=== PATIENT | female | born 1940 | race Caucasian/White ===

== ENCOUNTER 2016-07-01 17:17 | Observation (INO) | payer OTHER ==
[~2016-07-01] VITALS: Ht 154.9 cm; Wt 63.0 kg
[~2016-07-01 17:17] MED LIST: ALL DAY ALLERGY10 M3 PO; ANTI-DIARRHEA2 MG PO; ARICEPT10 MG PO; ARTIFICIAL TEAR15 M1 BOTH EYES; ASPIR 8181 M1 PO; ASPIRIN325 MG PO; ASPIRIN81 M1 PO; ASPIRIN81 M2 PO; ATHENOL325 MG PO; AUGMENTIN500 MG PO; Aricept PO; Aspirin E.C. PO; BENGAY TP; BENGAY113 GM TP; BYETTA PEN250 MCG/M1 SC; BYETTA10 MCG/0.0 SC; CALCIUM 500 +1 EACH PO; CHILD ASPIRIN81 M1 PO; CIPRO250 MG PO; COLACE100 MG PO; COUMADIN,JANTO7.5 MG PO; COUMADIN,JANTOVE5 MG PO; CRESTOR40 MG PO; CYMBALTA30 MG PO; CYMBALTA60 MG PO; Colace PO; Cymbalta PO; DIABETIC SILTU118 M1 PO; DONEPEZIL HCL10 MG PO; DUONEB 2.5-0.5 M3 ML AEROSOL; ENDOCET 5-3251 EACH PO; FERROUS SULFAT325 MG PO; FLEXERIL10 MG PO; GABAPENTIN300 MG PO; HEPARIN SO5000 UNITS SC; HUMALOG MI100 UNIT/5 SQ; HUMALOG MI100 UNIT/6 SC; HUMALOG MI100 UNIT/6 SQ; HUMALOG MI100 UNITS/ SC; HUMALOG100 UNIT/1 SC; HYDROCODON-ACE1 EACH PO; HYDROCODONE-AP1 EAC8 PO; IMODIUM A-D2 M1 PO; Imodium PO; KEFLEX500 MG PO; LANTUS 10100 UNITS/ SC; LEVAQUIN500 MG PO; LEVEMIR100 UNIT/2 SC; LEVO-T88 MCG PO; LEVOTHROID,S0.075 MG PO; LEVOTHYROXINE88 MCG PO; LIDODERM 5% P1 PATCH TD; LIPITOR80 MG PO; LISINOPRIL20 MG PO; LOPRESSOR25 MG PO; LORAZEPAM0.5 MG PO; Levothroid,Synthroid PO; Lopressor PO; METOPROLOL TART25 MG PO; METOPROLOL TART50 MG PO; MULTI VITAMIN1 EACH PO; NEURONTIN300 MG PO; NITROGLYCERIN0.4 MG SL; NITROSTAT0.4 MG PO; NITROSTAT0.4 MG SL; NOVOLOG 10100 UNITS/ SC; NOVOLOG MI100 UNIT/M SC; Neurontin PO; Nitrostat,NitroQuick SL; OSCAL, OYSTER500 MG PO; OXYCODONE HCL5 MG PO; OYSTERCAL-D 501 EACH PO; Oscal 500 w/Vitamin PO; PAIN & FEVER325 MG PO; PERCOCET 5/31 TABLET PO; PREDNISONE20 MG PO; PROTEIN POWDER454 G1 PO; PROTONIX40 MG PO; PROVENTIL,2.5 MG/3 M IH; Questran PO; RANITIDINE HCL150 MG PO; RHINOCORT AQUA8.6 G1 NS; ROXICODONE5 MG PO; SENNA8.6 MG PO; SPIRIVA1 INHALATI IH; TYLENOL REGULA325 MG PO; VICODIN,LORT1 TABLET PO; Vicodin,Norco 5/325 PO; XARELTO15 MG PO; ZANTAC300 MG PO; ZESTRIL,PRINIVI20 MG PO; ZYRTEC10 M2 PO; ZYRTEC10 M3 PO; Zestril,Prinivil PO
[2016-07-01] MEDS ORDERED: GABAPENTIN800 MG PO (17:36)
[2016-07-01] MEDS ORDERED: GABAPENTIN400 MG PO (17:36)
[2016-07-01] MEDS ORDERED: HYDROCODON-ACE1 EAC7 PO ×2 (17:38→18:56)
[2016-07-01] MEDS ORDERED: LEVEMIR100 UNIT/2 SC ×2 (17:39→17:41)
[2016-07-01 17:40] LABS: BASOPHIL COUNT 0.1 K/uL (0-0.1); EOSINOPHIL (%) 5.7 % (0-5); EOSINOPHIL COUNT 0.5 K/uL (0-0.3); HEMATOCRIT 32.6 % (36.0-46.0); IMMATURE GRANULOCYTE (%) 0.2 % (0.0-0.7); INSTRUMENT ABS NEUTROPHIL CT 5.6 K/uL; LYMPHOCYTE COUNT 2.4 K/uL (1.0-2.8); MCH 29.9 PG (29.0-34.0); MCV 96.4 FL (83-99); MEAN PLAT.VOLUME 9.2 uM^3 (9.5-12.4); MONOCYTE (%) 8.6 % (3-12); MONOCYTE COUNT 0.8 K/uL (0-0.8); NEUTROPHIL (%) 59.3 % (45-76); NEUTROPHIL COUNT 5.6 K/uL (1.8-6.4); PLATELET COUNT 244 K/uL (156-360); RBC DIS.WIDTH-CV 15.7 % (11.8-14.6); RBC DIS.WIDTH-SD 55.1 % (39-53); RED BLOOD COUNT 3.38 M/uL (3.80-5.20); WHITE BLOOD COUNT 9.5 K/uL (4.1-10.2)
[2016-07-01] MEDS ORDERED: LORATADINE10 M2 PO (17:42)
[2016-07-01] MEDS ORDERED: MELOXICAM7.5 MG PO (17:43)
[2016-07-01] MEDS ORDERED: METOPROLOL TART50 MG PO (17:44)
[2016-07-01 17:48] LABS: CHLORIDE 106 mEq/L (99-109); SODIUM 138 mEq/L (136-147)
[2016-07-01 17:49] LABS: INTER. NORMALIZED RATIO 1.1; PROTHROMBIN TIME 11.1 (9.2-11.2); PTT 25.4 (25-32)
[2016-07-01 17:50] LABS: GLUCOSE 83 mg/dL (70-99)
[2016-07-01 17:51] LABS: ANION GAP 7 MEQ/L (2-14)
[2016-07-01 17:54] LABS: GFR ESTIMATE (CALCULATED) 39 mL/min/
[2016-07-01 17:55] LABS: UREA NITROGEN (BUN) 35 mg/dL (9-23)
[2016-07-01 17:57] LABS: POTASSIUM 6.1 mEq/L (3.7-5.4)
[2016-07-01] MEDS ORDERED: SYNTHROID88 MCG PO (18:47)
[2016-07-01] MEDS ORDERED: BACTRIM,SEPT1 TABLET PO (18:49)
[2016-07-01] MEDS ORDERED: LITE COAT ASPI325 M1 PO (18:49)
[2016-07-01] MEDS ORDERED: COLACE100 MG PO (18:50)
[2016-07-01] MEDS ORDERED: BYETTA PEN250 MCG/M1 SC (18:51)
[2016-07-01] MEDS ORDERED: HUMALOG100 UNIT/2 SC ×4 (18:52→18:54)
[2016-07-01 18:54] LABS: TOTAL CHOLESTEROL 111 mg/dL (Desirable<200); TRIGLYCERIDES 290 MG/DL (Normal: <150)
[2016-07-01 18:55] LABS: HDL CHOLESTEROL 25 MG/DL (Desirable>=50); LDL CHOLESTEROL 28 mg/dL (Desirable<100); NON-HDL CHOLESTEROL 86 mg/dL (Desirable<160)
[2016-07-01 22:58] LABS: TROP-I INTERPRETATION NEGATIVE; TROPONIN-I < 0.01 ng/mL (0.0-0.30)
[2016-07-01 23:21] VITALS: BP 133/80
[2016-07-02 04:00] VITALS: BP 124/76
[2016-07-02 06:48] LABS: HEMATOCRIT 33.1 % (36.0-46.0); MCHC 30.8 G/DL (30.0-36.0); MCV 97.4 FL (83-99); MEAN PLAT.VOLUME 9.6 uM^3 (9.5-12.4); PLATELET COUNT 224 K/uL (156-360); RBC DIS.WIDTH-CV 15.9 % (11.8-14.6); RBC DIS.WIDTH-SD 56.2 % (39-53); WHITE BLOOD COUNT 10.5 K/uL (4.1-10.2)
[2016-07-02 07:13] LABS: TROP-I INTERPRETATION NEGATIVE; TROPONIN-I < 0.01 ng/mL (0.0-0.30)
[2016-07-02 07:30] VITALS: BP 138/60
[2016-07-02 08:13] LABS: ANION GAP 3 MEQ/L (2-14); CHLORIDE 104 MEQ/L (99-109); GFR ESTIMATE (CALCULATED) 42 mL/min/; GLUCOSE 160 mg/dL (70-99); SAMPLE HEMOLYSIS CHECK 0; SAMPLE ICTERIC CHECK 0; SAMPLE LIPEMIA CHECK 0; SODIUM 139 MEQ/L (136-147); UREA NITROGEN (BUN) 29 mg/dL (9-23)
[2016-07-02 08:15] LABS: POTASSIUM 6.1 MEQ/L (3.7-5.4)
[2016-07-02 12:32] VITALS: BP 115/56
[2016-07-02 15:19] LABS: TROP-I INTERPRETATION NEGATIVE; TROPONIN-I < 0.01 ng/mL (0.0-0.30)
[2016-07-02 17:43] LABS: ANION GAP 5 MEQ/L (2-14); CHLORIDE 99 MEQ/L (99-109); GFR ESTIMATE (CALCULATED) 51 mL/min/; GLUCOSE 145 mg/dL (70-99); SAMPLE HEMOLYSIS CHECK 0; SAMPLE ICTERIC CHECK 0; SAMPLE LIPEMIA CHECK 0; SODIUM 133 MEQ/L (136-147); UREA NITROGEN (BUN) 25 mg/dL (9-23)
[2016-07-02 17:45] LABS: POTASSIUM 4.7 MEQ/L (3.7-5.4)
[2016-07-02] MEDS ORDERED: LEVEMIR100 UNIT/2 SC (18:35)
[2016-07-02 22:00] VITALS: BP 139/63
[2016-07-03 07:32] LABS: Estimated Average Glucose 171 mg/dL (70-123); HEMOGLOBIN A1c (GLYCOHEMOGLOB) 7.6 % HGB (Below 5.7)
== END 2016-07-02 22:35 ==
LOC: EME 17:17 → EDOF 20:00 → 5WEST 20:00
PROVIDERS: Emergency Medicine; Family Medicine
DX: G45.9 Transient cerebral ischemic attack, unspecified (principal); K62.5 Hemorrhage of anus and rectum; R41.82 Altered mental status, unspecified; E11.9 Type 2 diabetes mellitus without complications; I25.10 Atherosclerotic heart disease of native coronary artery without angina pectoris; Z95.5 Presence of coronary angioplasty implant and graft; G89.4 Chronic pain syndrome; M19.90 Unspecified osteoarthritis, unspecified site; Z96.649 Presence of unspecified artificial hip joint; K21.9 Gastro-esophageal reflux disease without esophagitis; E03.9 Hypothyroidism, unspecified; I10 Essential (primary) hypertension; E78.5 Hyperlipidemia, unspecified; F41.9 Anxiety disorder, unspecified; F32.9 Major depressive disorder, single episode, unspecified; G62.9 Polyneuropathy, unspecified; J44.9 Chronic obstructive pulmonary disease, unspecified; D64.9 Anemia, unspecified; G30.9 Alzheimer's disease, unspecified; F02.80 Dementia in other diseases classified elsewhere, unspecified severity, without behavioral disturbance, psychotic disturbance, mood disturbance, and anxiety; Z79.4 Long term (current) use of insulin; Z87.891 Personal history of nicotine dependence
CPT/HCPCS: 70450; 70551; 80048; 80048 91; 80061; 83036; 84484; 85025; 85027; 85610; 85730; 93005; 93880; 99281; 99285; G0378

== ENCOUNTER 2016-10-12 15:26 | Inpatient (IN) | payer OTHER ==
[~2016-10-12] VITALS: Ht 154.9 cm; Wt 67.2 kg
[~2016-10-12 15:26] MED LIST changes: +BACTRIM,SEPT1 TABLET PO; +GABAPENTIN400 MG PO; +GABAPENTIN800 MG PO; +HUMALOG100 UNIT/2 SC; +HYDROCODON-ACE1 EAC7 PO; +LITE COAT ASPI325 M1 PO; +LORATADINE10 M2 PO; +MELOXICAM7.5 MG PO; +SYNTHROID88 MCG PO
[2016-10-12 17:00] LABS: CHLORIDE 102 mEq/L (99-109); SODIUM 135 mEq/L (136-147)
[2016-10-12 17:01] LABS: GLUCOSE 199 mg/dL (70-99)
[2016-10-12 17:03] LABS: ANION GAP 10 MEQ/L (2-14)
[2016-10-12 17:05] LABS: GFR ESTIMATE (CALCULATED) 36 mL/min/
[2016-10-12 17:06] LABS: UREA NITROGEN (BUN) 29 mg/dL (9-23)
[2016-10-12 17:32] LABS: EOSINOPHIL (%) 2.6 % (0-5); EOSINOPHIL COUNT 0.4 K/uL (0-0.3); IMMATURE GRANULOCYTE (%) 0.7 % (0.0-0.7); IMMATURE GRANULOCYTE COUNT 0.1 K/uL; INSTRUMENT ABS NEUTROPHIL CT 9.2 K/uL; LYMPHOCYTE COUNT 2.7 K/uL (1.0-2.8); MCH 33.8 PG (29.0-34.0); MCV 112.5 FL (83-99); MEAN PLAT.VOLUME 9.5 uM^3 (9.5-12.4); MONOCYTE (%) 8.5 % (3-12); MONOCYTE COUNT 1.1 K/uL (0-0.8); NEUTROPHIL (%) 68.1 % (45-76); NEUTROPHIL COUNT 9.2 K/uL (1.8-6.4); NRBC (%) 0.7 /100 WBC (0-0); PLATELET COUNT 247 K/uL (156-360); RBC DIS.WIDTH-CV 22.1 % (11.8-14.6); RBC DIS.WIDTH-SD 84.1 % (39-53); WHITE BLOOD COUNT 13.5 K/uL (4.1-10.2)
[2016-10-12 17:35] LABS: INTER. NORMALIZED RATIO 1.1; PROTHROMBIN TIME 10.8 (9.2-11.2); PTT 26.8 (25-32)
[2016-10-12 18:01] LABS: HDL CHOLESTEROL 31 MG/DL (Desirable>=50); LDL CHOLESTEROL 23 mg/dL (Desirable<100); NON-HDL CHOLESTEROL 69 mg/dL (Desirable<160); SAMPLE HEMOLYSIS CHECK 1; SAMPLE ICTERIC CHECK 0; SAMPLE LIPEMIA CHECK 0; TOTAL CHOLESTEROL 100 mg/dL (Desirable<200); TRIGLYCERIDES 229 MG/DL (Normal: <150)
[2016-10-12] MEDS ORDERED: GABAPENTIN300 MG PO (19:00)
[2016-10-12] MEDS ORDERED: GABAPENTIN400 MG PO (19:01)
[2016-10-12] MEDS ORDERED: LEVEMIR FL100 UNIT/1 SC ×3 (19:02→19:13)
[2016-10-12] MEDS ORDERED: METOPROLOL SUCC50 MG PO (19:03)
[2016-10-12] MEDS ORDERED: PLAVIX75 MG PO (19:04)
[2016-10-12] MEDS ORDERED: SENNA-DOCUSATE1 EAC1 PO (19:05)
[2016-10-12] MEDS ORDERED: BYETTA10 MCG/0.0 SC (19:06)
[2016-10-12] MEDS ORDERED: TYLENOL REGULA325 MG PO (19:08)
[2016-10-12] MEDS ORDERED: GLUCO BURST37.5 GM PO (19:09)
[2016-10-12 19:30] LABS: BILIRUBIN NEGATIVE; BLOOD NEGATIVE; COLOR YELLOW ((YELLOW)); GLUCOSE (STRIP) NEGATIVE; KETONES NEGATIVE; LEUKOCYTES NEGATIVE; NITRITE NEGATIVE; PROTEIN (STRIP) NEGATIVE; SPECIFIC GRAVITY 1.014 (1.000-1.030); UROBILINOGEN 0.2 MG/DL (0.2-1.0)
[2016-10-12 19:31] LABS: ADD MIUA? NO; UCUL ADDED? NO
[2016-10-12 19:54] VITALS: BP 116/55
[2016-10-12 20:14] VITALS: BP 106/48
[2016-10-12 21:14] VITALS: BP 122/62
[2016-10-12 22:30] VITALS: BP 146/64
[2016-10-12 23:45] VITALS: BP 143/60
[2016-10-13] VITALS (12 sets, daily range): BP systolic 106–140; BP diastolic 54–66
[2016-10-13 06:53] LABS: POINT-OF-CARE METER ID UU13113725
[2016-10-13 07:03] LABS: HEMATOCRIT 24.8 % (36.0-46.0); MCH 30.6 PG (29.0-34.0); MCHC 30.2 G/DL (30.0-36.0); MEAN PLAT.VOLUME 9.6 uM^3 (9.5-12.4); NRBC (%) 0.8 /100 WBC (0-0); PLATELET COUNT 244 K/uL (156-360); RBC DIS.WIDTH-CV 24.8 % (11.8-14.6)
[2016-10-13 07:03] LABS: Estimated Average Glucose 134 mg/dL (70-123); HEMOGLOBIN A1c (GLYCOHEMOGLOB) 6.3 % HGB (Below 5.7)
[2016-10-13 07:04] LABS: MCV 101.2 FL (83-99); RED BLOOD COUNT 2.45 M/uL (3.80-5.20)
[2016-10-13 07:07] LABS: ALKALINE PHOSPHATASE 99 IU/L (3-129); ANION GAP 6 MEQ/L (2-14); CHLORIDE 105 MEQ/L (99-109); GFR ESTIMATE (CALCULATED) 46 mL/min/; GLUCOSE 203 mg/dL (70-99); POTASSIUM 5.5 MEQ/L (3.7-5.4); SAMPLE HEMOLYSIS CHECK 0; SAMPLE ICTERIC CHECK 0; SAMPLE LIPEMIA CHECK 0; SODIUM 138 MEQ/L (136-147); TOTAL BILIRUBIN 0.6 MG/DL (0.0-1.0); UREA NITROGEN (BUN) 26 mg/dL (9-23)
[2016-10-13 11:52] LABS: POINT-OF-CARE METER ID UU13113725
[2016-10-13 15:05] LABS: POINT-OF-CARE METER ID UU13113819
[2016-10-13 15:11] LABS: MCV 99.7 FL (83-99)
[2016-10-13 19:36] LABS: HEMATOCRIT 30.1 % (36.0-46.0); MCV 99.3 FL (83-99)
[2016-10-13 21:18] LABS: POINT-OF-CARE METER ID UU13113725
[2016-10-14 00:15] VITALS: BP 127/53
[2016-10-14 00:44] LABS: HEMATOCRIT 26.7 % (36.0-46.0); MCV 98.2 FL (83-99)
[2016-10-14 04:00] VITALS: BP 117/59
[2016-10-14 05:24] LABS: POINT-OF-CARE METER ID UU13113725
[2016-10-14 06:12] LABS: HEMATOCRIT 27.9 % (36.0-46.0); MCH 30.2 PG (29.0-34.0); MCHC 30.1 G/DL (30.0-36.0); MCV 100.4 FL (83-99); MEAN PLAT.VOLUME 9.5 uM^3 (9.5-12.4); NRBC (%) 0.2 /100 WBC (0-0); PLATELET COUNT 209 K/uL (156-360); RBC DIS.WIDTH-SD 87.6 % (39-53); RED BLOOD COUNT 2.78 M/uL (3.80-5.20); WHITE BLOOD COUNT 8.6 K/uL (4.1-10.2)
[2016-10-14 07:32] VITALS: BP 115/56
[2016-10-14 12:24] LABS: POINT-OF-CARE METER ID UU13113675
[2016-10-14 12:48] LABS: POINT-OF-CARE METER ID UU13113675
[2016-10-14 15:00] VITALS: BP 136/62
[2016-10-14 19:45] VITALS: BP 122/54
[2016-10-14 23:42] VITALS: BP 135/61
[2016-10-15 05:57] LABS: POINT-OF-CARE METER ID UU13113725
[2016-10-15 06:05] LABS: HEMATOCRIT 28.1 % (36.0-46.0); MCH 32.1 PG (29.0-34.0); MCV 103.7 FL (83-99); MEAN PLAT.VOLUME 9.6 uM^3 (9.5-12.4); NRBC (%) 0.2 /100 WBC (0-0); PLATELET COUNT 188 K/uL (156-360); RBC DIS.WIDTH-CV 24.1 % (11.8-14.6); RBC DIS.WIDTH-SD 90.8 % (39-53); RED BLOOD COUNT 2.71 M/uL (3.80-5.20); WHITE BLOOD COUNT 8.3 K/uL (4.1-10.2)
[2016-10-15 06:37] LABS: EOSINOPHIL (%) 2.5 % (0-5); EOSINOPHIL COUNT 0.2 K/uL (0-0.3); IMMATURE GRANULOCYTE (%) 0.5 % (0.0-0.7); INSTRUMENT ABS NEUTROPHIL CT 5.4 K/uL; LYMPHOCYTE COUNT 1.8 K/uL (1.0-2.8); MONOCYTE (%) 10.1 % (3-12); MONOCYTE COUNT 0.8 K/uL (0-0.8); NEUTROPHIL (%) 64.8 % (45-76); NEUTROPHIL COUNT 5.4 K/uL (1.8-6.4)
[2016-10-15 07:34] VITALS: BP 132/60
[2016-10-15 10:44] VITALS: BP 158/65
[2016-10-15 11:25] LABS: POINT-OF-CARE METER ID UU13113725
[2016-10-15 16:28] VITALS: BP 132/60
[2016-10-15 18:45] VITALS: BP 152/64
[2016-10-15 23:01] VITALS: BP 137/63
[2016-10-16 02:59] VITALS: BP 151/68
[2016-10-16 07:20] VITALS: BP 160/67
[2016-10-16 11:05] VITALS: BP 142/56
== END 2016-10-16 15:33 | DRG 383 ==
LOC: EME → EDBD 15:26 → EDOF 19:45 → 5EAST 19:45
PROVIDERS: Emergency Medicine; Family Medicine; Internal Medicine Gastroenterology
PROC: 0DJD8ZZ Inspection of Lower Intestinal Tract, Via Natural or Artificial Opening Endoscopic (ICD-10-PCS; principal; 2016-10-12)
PROC: 30233N1 Transfusion of Nonautologous Red Blood Cells into Peripheral Vein, Percutaneous Approach (ICD-10-PCS; 2016-10-13)
PROC: 0DB98ZX Excision of Duodenum, Via Natural or Artificial Opening Endoscopic, Diagnostic (ICD-10-PCS; 2016-10-13)
PROC: 0DB68ZX Excision of Stomach, Via Natural or Artificial Opening Endoscopic, Diagnostic (ICD-10-PCS; 2016-10-13)
DX: K25.7 Chronic gastric ulcer without hemorrhage or perforation (principal); K57.30 Diverticulosis of large intestine without perforation or abscess without bleeding; K56.41 Fecal impaction; I25.10 Atherosclerotic heart disease of native coronary artery without angina pectoris; I10 Essential (primary) hypertension; R55 Syncope and collapse; D64.9 Anemia, unspecified; J44.9 Chronic obstructive pulmonary disease, unspecified; J18.9 Pneumonia, unspecified organism; G62.9 Polyneuropathy, unspecified; M19.90 Unspecified osteoarthritis, unspecified site; F41.9 Anxiety disorder, unspecified; M81.0 Age-related osteoporosis without current pathological fracture; E11.9 Type 2 diabetes mellitus without complications; E03.9 Hypothyroidism, unspecified; Z87.891 Personal history of nicotine dependence; E78.5 Hyperlipidemia, unspecified; K64.8 Other hemorrhoids; R16.0 Hepatomegaly, not elsewhere classified; K63.5 Polyp of colon; F32.9 Major depressive disorder, single episode, unspecified; K21.9 Gastro-esophageal reflux disease without esophagitis; Z79.82 Long term (current) use of aspirin; I48.91 Unspecified atrial fibrillation; Z96.641 Presence of right artificial hip joint; K92.2 Gastrointestinal hemorrhage, unspecified; F03.90 Unspecified dementia, unspecified severity, without behavioral disturbance, psychotic disturbance, mood disturbance, and anxiety; R47.81 Slurred speech; K29.70 Gastritis, unspecified, without bleeding
CPT/HCPCS: 70450; 74183; 80048; 80053; 80061; 81003; 82948; 83036; 85014; 85018; 85025; 85027; 85610; 85730; 86900; 86901; 86920; 88305; 88342 TC; 93005; 94799; 99281; 99285; C9113; J1815; J2270; J7030; P9016

== ENCOUNTER → 2017-01-15 | Outpatient (CLI) | payer OTHER ==
[~2017-01-15] MED LIST changes: +GLUCO BURST37.5 GM PO; +LEVEMIR FL100 UNIT/1 SC; +METOPROLOL SUCC50 MG PO; +PLAVIX75 MG PO; +SENNA-DOCUSATE1 EAC1 PO
== END ==
LOC: RAD 12:20
DX: M47.892 Other spondylosis, cervical region (principal)
CPT/HCPCS: 70450; 72125

== ENCOUNTER 2017-08-27 22:01 | Emergency (ER) | payer OTHER ==
[~2017-08-27] VITALS: Ht 154.9 cm; Wt 72.0 kg
[2017-08-28 01:08] VITALS: BP 131/60
== END 2017-08-28 01:17 ==
LOC: EME 22:01
DX: S60.222A Contusion of left hand, initial encounter (principal); Z79.01 Long term (current) use of anticoagulants; Z79.02 Long term (current) use of antithrombotics/antiplatelets; W22.09XA Striking against other stationary object, initial encounter; Y92.129 Unspecified place in nursing home as the place of occurrence of the external cause; I12.9 Hypertensive chronic kidney disease with stage 1 through stage 4 chronic kidney disease, or unspecified chronic kidney disease; E11.22 Type 2 diabetes mellitus with diabetic chronic kidney disease; N18.9 Chronic kidney disease, unspecified; Z79.4 Long term (current) use of insulin; F02.80 Dementia in other diseases classified elsewhere, unspecified severity, without behavioral disturbance, psychotic disturbance, mood disturbance, and anxiety; G30.9 Alzheimer's disease, unspecified; F32.9 Major depressive disorder, single episode, unspecified; J44.9 Chronic obstructive pulmonary disease, unspecified; E78.5 Hyperlipidemia, unspecified; H35.30 Unspecified macular degeneration; K21.9 Gastro-esophageal reflux disease without esophagitis; F41.9 Anxiety disorder, unspecified; E03.9 Hypothyroidism, unspecified; Z87.440 Personal history of urinary (tract) infections; I25.10 Atherosclerotic heart disease of native coronary artery without angina pectoris; Z88.5 Allergy status to narcotic agent; Z88.8 Allergy status to other drugs, medicaments and biological substances; Z87.891 Personal history of nicotine dependence
CPT/HCPCS: 73130; 99281; 99285

== ENCOUNTER 2017-10-21 12:21 | Emergency (ER) | payer OTHER ==
[~2017-10-21] VITALS: Ht 170.2 cm; Wt 72.4 kg
[2017-10-21 13:20] LABS: BASOPHIL (%) 0.5 % (0-1); EOSINOPHIL (%) 4.9 % (0-5); EOSINOPHIL COUNT 0.4 K/uL (0-0.3); HEMATOCRIT 33.1 % (36.0-46.0); HEMOGLOBIN 10.4 G/DL (11.9-15.5); IMMATURE GRANULOCYTE (%) 0.5 % (0.0-0.7); LYMPHOCYTE (%) 25.9 % (15-42); LYMPHOCYTE COUNT 2.1 K/uL (1.0-2.8); MCH 32.8 PG (29.0-34.0); MCHC 31.4 G/DL (30.0-36.0); MCV 104.4 FL (83-99); MONOCYTE (%) 9.6 % (3-12); MONOCYTE COUNT 0.8 K/uL (0-0.8); NEUTROPHIL (%) 58.6 % (45-76); NEUTROPHIL COUNT 4.7 K/uL (1.8-6.4); PLATELET COUNT 167 K/uL (156-360); RBC DIS.WIDTH-CV 14.2 % (11.8-14.6); RBC DIS.WIDTH-SD 54.4 % (39-53); RED BLOOD COUNT 3.17 M/uL (3.80-5.20); WHITE BLOOD COUNT 7.9 K/uL (4.1-10.2)
[2017-10-21 13:32] LABS: CHLORIDE 104 mEq/L (99-109); POTASSIUM 4.4 mEq/L (3.7-5.4); SODIUM 143 mEq/L (136-147)
[2017-10-21 13:33] LABS: GLUCOSE 130 mg/dL (70-99)
[2017-10-21 13:37] LABS: CREATININE 1.4 mg/dL (0.6-1.3); GFR ESTIMATE (CALCULATED) 39 mL/min/
[2017-10-21 13:38] LABS: UREA NITROGEN (BUN) 30 mg/dL (9-23)
[2017-10-21 14:55] VITALS: BP 133/63
== END 2017-10-21 15:58 ==
LOC: EME 12:21
PROVIDERS: Emergency Medicine
DX: S09.90XA Unspecified injury of head, initial encounter (principal); S70.01XA Contusion of right hip, initial encounter; M54.2 Cervicalgia; M79.651 Pain in right thigh; W18.30XA Fall on same level, unspecified, initial encounter; E78.5 Hyperlipidemia, unspecified; F32.9 Major depressive disorder, single episode, unspecified; G30.9 Alzheimer's disease, unspecified; F02.80 Dementia in other diseases classified elsewhere, unspecified severity, without behavioral disturbance, psychotic disturbance, mood disturbance, and anxiety; F41.9 Anxiety disorder, unspecified; H35.30 Unspecified macular degeneration; E11.22 Type 2 diabetes mellitus with diabetic chronic kidney disease; I12.9 Hypertensive chronic kidney disease with stage 1 through stage 4 chronic kidney disease, or unspecified chronic kidney disease; N18.9 Chronic kidney disease, unspecified; Z79.4 Long term (current) use of insulin; J43.9 Emphysema, unspecified; K21.9 Gastro-esophageal reflux disease without esophagitis; I25.10 Atherosclerotic heart disease of native coronary artery without angina pectoris; Z88.5 Allergy status to narcotic agent; Z88.8 Allergy status to other drugs, medicaments and biological substances; Z87.891 Personal history of nicotine dependence
CPT/HCPCS: 70450; 71045; 72125; 73502; 73552; 80048; 85025; 93005; 99281; 99284

== ENCOUNTER 2017-11-04 14:49 | Emergency (ER) | payer OTHER ==
[~2017-11-04] VITALS: Ht 162.6 cm; Wt 72.4 kg
[2017-11-04 15:31] LABS: HEMOGLOBIN 10.8 G/DL (11.9-15.5); MCH 33.3 PG (29.0-34.0); MCHC 31.8 G/DL (30.0-36.0); MCV 104.9 FL (83-99); NRBC (%) 0.2 /100 WBC (0-0); PLATELET COUNT 184 K/uL (156-360); RBC DIS.WIDTH-CV 14.9 % (11.8-14.6); RBC DIS.WIDTH-SD 56.8 % (39-53); RED BLOOD COUNT 3.24 M/uL (3.80-5.20); WHITE BLOOD COUNT 8.7 K/uL (4.1-10.2)
[2017-11-04 15:43] LABS: CHLORIDE 102 mEq/L (99-109); POTASSIUM 5.1 mEq/L (3.7-5.4); SODIUM 142 mEq/L (136-147)
[2017-11-04 15:45] LABS: GLUCOSE 223 mg/dL (70-99)
[2017-11-04 15:49] LABS: CREATININE 1.4 mg/dL (0.6-1.3); GFR ESTIMATE (CALCULATED) 39 mL/min/
[2017-11-04 15:50] LABS: UREA NITROGEN (BUN) 34 mg/dL (9-23)
[2017-11-04 17:32] LABS: APPEARANCE CLOUDY ((CLEAR)); BILIRUBIN NEGATIVE; BLOOD NEGATIVE; COLOR YELLOW ((YELLOW)); GLUCOSE (STRIP) 150; KETONES NEGATIVE; LEUKOCYTES LARGE; NITRITE NEGATIVE; PROTEIN (STRIP) 30; SPECIFIC GRAVITY 1.016 (1.000-1.030); UROBILINOGEN 0.2 MG/DL (0.2-1.0)
[2017-11-04 17:49] LABS: RED BLOOD CELLS 0-5 /HPF (0-5); WHITE BLOOD CELLS TNTC /HPF (0-5)
[2017-11-04 17:50] LABS: BACTERIA 3+ /HPF; EPITHELIAL CELLS 1+ /HPF; MUCUS RARE /LPF; UCUL ADDED? YES
[2017-11-04] MEDS ORDERED: CIPRO500 MG PO (18:10)
[2017-11-04 18:46] VITALS: BP 155/70
== END 2017-11-04 19:02 ==
LOC: EME 14:49
PROVIDERS: Emergency Medicine
DX: S80.02XA Contusion of left knee, initial encounter (principal); S09.90XA Unspecified injury of head, initial encounter; W18.30XA Fall on same level, unspecified, initial encounter; Y92.099 Unspecified place in other non-institutional residence as the place of occurrence of the external cause; N39.0 Urinary tract infection, site not specified; B96.1 Klebsiella pneumoniae [K. pneumoniae] as the cause of diseases classified elsewhere; E11.9 Type 2 diabetes mellitus without complications; E78.5 Hyperlipidemia, unspecified; I12.9 Hypertensive chronic kidney disease with stage 1 through stage 4 chronic kidney disease, or unspecified chronic kidney disease; N18.9 Chronic kidney disease, unspecified; I25.10 Atherosclerotic heart disease of native coronary artery without angina pectoris; K21.9 Gastro-esophageal reflux disease without esophagitis; J43.9 Emphysema, unspecified; E03.9 Hypothyroidism, unspecified; H35.30 Unspecified macular degeneration; M19.90 Unspecified osteoarthritis, unspecified site; J30.9 Allergic rhinitis, unspecified; G30.9 Alzheimer's disease, unspecified; F02.80 Dementia in other diseases classified elsewhere, unspecified severity, without behavioral disturbance, psychotic disturbance, mood disturbance, and anxiety; F32.9 Major depressive disorder, single episode, unspecified; F41.9 Anxiety disorder, unspecified; Z96.641 Presence of right artificial hip joint; Z90.49 Acquired absence of other specified parts of digestive tract; Z87.891 Personal history of nicotine dependence; Z79.4 Long term (current) use of insulin; Z88.8 Allergy status to other drugs, medicaments and biological substances
CPT/HCPCS: 70450; 71045; 73502; 73564; 80048; 81003; 85027; 87077; 87086; 87186; 99281; 99285; J0696